=== PATIENT | female | born 1970 | race Caucasian/White ===

== ENCOUNTER 2020-06-28 07:11 | Emergency (ER) | payer BC ==
[~2020-06-28] VITALS: Ht 157.5 cm; Wt 66.7 kg
[2020-06-28] MEDS ORDERED: INDERAL LA120 M1 PO (08:14)
[2020-06-28] MEDS ORDERED: NORTRIPTYLINE H10 M1 PO (08:14)
[2020-06-28] MEDS ORDERED: TOPAMAX100 MG PO (08:14)
[2020-06-28] MEDS ORDERED: NEXIUM5 MG PO (08:14)
[2020-06-28] MEDS ORDERED: PEPCID20 MG PO (08:15)
[2020-06-28 08:17] LABS: HEMATOCRIT 40.7 % (37.0-47.0); HEMOGLOBIN 13.8 gm/dL (12.0-15.0); MCH 31.1 pg (26.0-34.0); MCHC 33.9 g/dL (28.0-37.0); MCV 91.7 fL (80.0-100.0); RBC 4.43 mil/uL (4.20-5.00); RDW 13.3 % (10.5-14.5); WBC 8.8 thou/uL (4.0-11.0)
[2020-06-28 08:25] LABS: CALCIUM 8.7 mg/dL (8.5-10.1); CREATININE 0.7 mg/dL (0.6-1.0)
[2020-06-28 08:59] VITALS: BP 113/62
== END 2020-06-28 08:59 | disposition home or self-care (01) ==
LOC: ER 07:11
PROVIDERS: Emergency Medicine
DX: R53.1 Weakness (principal); R42 Dizziness and giddiness; R51.9 Headache, unspecified; R07.0 Pain in throat; R43.9 Unspecified disturbances of smell and taste; R41.0 Disorientation, unspecified; R25.2 Cramp and spasm; J45.909 Unspecified asthma, uncomplicated; F32.9 Major depressive disorder, single episode, unspecified; F41.9 Anxiety disorder, unspecified; Z79.899 Other long term (current) drug therapy; Z88.1 Allergy status to other antibiotic agents